=== PATIENT | female | born 1980 | race Caucasian/White ===

== ENCOUNTER → 2017-04-04 | Outpatient (CLI) | payer BC ==
[~2017-04-04] MED LIST: FLNCV PO
== END | disposition home or self-care (01) ==
LOC: C.PAPS 08:29
PROVIDERS: ATTEND Obstetrics & Gynecology
DX: Z01.411 Encounter for gynecological examination (general) (routine) with abnormal findings (principal); R87.619 Unspecified abnormal cytological findings in specimens from cervix uteri

== ENCOUNTER → 2017-10-25 | Outpatient (CLI) | payer BC ==
--- NOTE | 2017-10-25 17:58 | DIAGNOSTIC IMAGING REPORT ---
CHEST 2 VIEWS ROUTINE CLINICAL HISTORY: Cough. Pneumonia. COMPARISON STUDY: No previous studies for comparison. FINDINGS: There is slight rightward curvature of the lower thoracic and upper lumbar spine. Lung volumes are normal. There is no pneumothorax or pleural effusion. Pulmonary vascularity is normal. Pectus excavatum deformity is noted on lateral projection. No consolidation is identified. Cardiac size is normal. IMPRESSION: 1. No acute cardiopulmonary findings. 2. Pectus excavatum. Electronically signed by: Denys Cih M.D. 10/25/2017 5:57 PM Dictated Date/Time: 10/25/2017 5:55 PM
== END | disposition home or self-care (01) ==
LOC: C.RAD 17:29
PROVIDERS: ATTEND Family Medicine
DX: J18.9 Pneumonia, unspecified organism (principal); M95.4 Acquired deformity of chest and rib